=== PATIENT | male | born 1935 | race Two or more races ===

== ENCOUNTER 2017-12-17 13:23 | Outpatient (CLI) | payer OTHER | END 2017-12-17 15:54 | disposition home or self-care (01) | LOC: RAD 13:23 | DX: M25.512 Pain in left shoulder (principal) ==

== ENCOUNTER 2019-07-07 11:38 | Outpatient (CLI) | payer OTHER | END 2019-07-07 14:59 | disposition home or self-care (01) | LOC: NUCLEAR 11:38 | DX: I35.0 Nonrheumatic aortic (valve) stenosis (principal); I11.9 Hypertensive heart disease without heart failure; I67.89 Other cerebrovascular disease ==